=== PATIENT | female | born 1950 | race Caucasian/White ===

== ENCOUNTER → 2018-10-09 10:03 | Outpatient (CLI) | payer MEDICARE, SELFPAY ==
[2018-10-09 11:03] LABS: Hematocrit 50.1 % (36-46); Hemoglobin 16.5 g/dL (12.0-16.0); Mean Corpuscular Hemoglobin 30.3 PG (26-34); Mean Corpuscular Volume 91.8 fL (80-100); Platelet Count 247 X10^3/uL (150-400); Red Blood Cell Count 5.46 X10^6/uL (4.0-5.2); Red Cell Distribution Width 14.8 % (11.6-14.8); White Blood Cell Count 9.1 X10^3/uL (4.5-11.0)
[2018-10-09 11:47] LABS: Microalbumi Creatinin Ratio Ur 42.1 ug/mg CR (<30); Microalbumin Urine Random 4.3 mg/dL (0-1.6)
[2018-10-09 12:16] LABS: HEMOLYSIS < 15 (0-50); Iron 158 ug/dL (37-170)
[2018-10-09 12:20] LABS: Alanine Aminotransferase 53 IU/L (9-52); Albumin 5.1 g/dL (3.5-5.0); Albumin Globulin Ratio 1.8 (1.0-2.8); Alkaline Phosphatase 80 U/L (38-126); Aspartate Aminotransferase 31 IU/L (14-36); BUN Creatinine Ratio 15.8 (6-22); Bilirubin Total 0.8 mg/dL (0.2-1.3); Blood Urea Nitrogen 19 mg/dL (7-17); Calcium 10.7 mg/dL (8.4-10.2); Carbon Dioxide 23 mmol/L (22-32); Chloride 104 mmol/L (98-107); Cholesterol 310 mg/dL (140-199); Estimated Glomerular Filt Rate 45.1 mL/min (>60); Globulin 2.9 g/dL (1.7-4.1); Glucose 95 mg/dL (80-110); HDL Cholesterol 82 mg/dL (40-60); HEMOLYSIS < 15 (0-50); LDL Cholesterol Calculated 181 mg/dL (<100); Magnesium 2.3 mg/dL (1.6-2.3); Potassium 5.1 mmol/L (3.4-5.1); Sodium 140 mmol/L (137-145); Triglycerides 235 mg/dL (35-150)
[2018-10-09 12:26] LABS: Percent Iron Saturation 45 % (15-50); Total Iron Binding Capacity 355 ug/dL (265-497); Transferrin 312 mg/dL (206-381)
[2018-10-09 12:34] LABS: Vitamin D 25 Hydroxy (D3) 30.8 ng/mL (30.0-100.0)
[2018-10-09 12:51] LABS: TSH w/ Reflex to FT4 2.41 uIU/mL (0.47-4.68)
[2018-10-09 12:57] LABS: Ferritin 80.7 ng/mL (11.1-264)
[2018-10-09 13:27] LABS: Folate 6.3 ng/mL (2.76-20.0); Vitamin B12 536 pg/mL (239-931)
== END ==
PROVIDERS: Visit Provider Nurse Practitioner Family
DX: I10 Essential (primary) hypertension (principal); J44.9 Chronic obstructive pulmonary disease, unspecified; R06.2 Wheezing; G25.81 Restless legs syndrome; Z68.29 Body mass index [BMI] 29.0-29.9, adult; N18.9 Chronic kidney disease, unspecified; E83.52 Hypercalcemia
CPT/HCPCS: 36415; 80053; 80061; 82043; 82306; 82570; 82607; 82728; 82746; 83540; 83550; 83735; 84443; 85027

== ENCOUNTER → 2018-12-04 13:25 | Outpatient (CLI) | payer MEDICARE, SELFPAY ==
[2018-12-04 13:52] LABS: RBC Urine None Seen (0-5/HPF)
[2018-12-04 14:39] LABS: Hematocrit 47.7 % (36-46); Hemoglobin 15.7 g/dL (12.0-16.0); Mean Corpuscular Hemoglobin 30.8 PG (26-34); Mean Corpuscular Volume 93.5 fL (80-100); Platelet Count 247 X10^3/uL (150-400); White Blood Cell Count 7.7 X10^3/uL (4.5-11.0)
[2018-12-04 14:47] LABS: Appearance Urine UA SL CLOUDY; Bilirubin Urine UA NEGATIVE (NEGATIVE); Color Urine UA YELLOW; Glucose Urine UA NEGATIVE (Negative); Ketones Urine UA NEGATIVE (NEGATIVE); Leukocyte Esterase Urine UA NEGATIVE (NEGATIVE); Nitrite Urine UA NEGATIVE (Negative); Occult Blood Urine UA TRACE-INTACT (Negative); Protein Urine UA NEGATIVE (Negative); Urobilinogen Urine UA 0.2 E.U./dL (0.2)
[2018-12-04 15:11] LABS: Squamous Epithelial Cell Urine 5-10 /HPF (0-5/HPF); WBC Urine 0-1/HPF (0-5/HPF)
[2018-12-04 15:12] LABS: Bacteria Urine Moderate (10-30); Culture Indicated Urine Cult Not Indicated
[2018-12-04 15:13] LABS: Urine Comments NOTE
[2018-12-04 15:25] LABS: Blood Urea Nitrogen 24 mg/dL (7-17); Calcium 9.8 mg/dL (8.4-10.2); Carbon Dioxide 23 mmol/L (22-32); Chloride 103 mmol/L (98-107); Estimated Glomerular Filt Rate 44.9 mL/min (>60); Glucose 105 mg/dL (80-110); HEMOLYSIS < 15 (0-50); Potassium 4.6 mmol/L (3.4-5.1); Sodium 136 mmol/L (137-145)
[2018-12-04 15:27] LABS: Creatinine Urine Random 78.5 mg/dL; Protein (Total) Urine Random 8 mg/dL (0-12)
[2018-12-04 15:56] LABS: Hepatitis B Surface Antigen NEGATIVE s/c (NEGATIVE)
[2018-12-04 16:13] LABS: Hep C Virus Ab w/Reflex Quant NEGATIVE s/c (NEGATIVE)
[2018-12-06 11:43] LABS: DNA (DS) Antibody 1 IU/mL (< 5)
[2018-12-06 14:15] LABS: Hepatitis B Core Antibody Nonreactive (Nonreactive)
[2018-12-06 14:19] LABS: Parathyroid Hormone Int 59 pg/mL (14-64)
[2018-12-06 14:37] LABS: Complement C3 125 mg/dL (83-193)
[2018-12-06 14:44] LABS: Hepatitis B Surf AB Imm QUANT < 5 mIU/mL (> 9)
[2018-12-06 18:58] LABS: ANA Screen, IFA Negative (Negative)
[2018-12-08 15:51] LABS: Albumin 100 %; Protein/ Creatinine Ratio 97 mg/g creat (21-161); Total Urine Protein 8 mg/dL (5-24); Urine Creatinine, Random 82 mg/dL (20-275)
[2018-12-08 18:08] LABS: ANCA Screen Negative (Negative)
[2018-12-09 23:36] LABS: Albumin 4.1 g/dL (3.8-4.8); Alpha 1 Globulin 0.2 g/dL (0.2-0.3); Alpha 2 Globulin 0.6 g/dL (0.5-0.9); Beta 1 Globulin 0.4 g/dL (0.4-0.6); Gamma Globulin 0.7 g/dL (0.8-1.7); Protein, Total 6.3 g/dL (6.1-8.1)
== END ==
PROVIDERS: PCP Nurse Practitioner Family; Visit Provider Student in an Organized Health Care Education/Training Program
DX: L93.2 Other local lupus erythematosus (principal); M31.30 Wegener's granulomatosis without renal involvement; M32.10 Systemic lupus erythematosus, organ or system involvement unspecified; N00.9 Acute nephritic syndrome with unspecified morphologic changes; N05.9 Unspecified nephritic syndrome with unspecified morphologic changes; D89.89 Other specified disorders involving the immune mechanism, not elsewhere classified; D70.9 Neutropenia, unspecified; D63.1 Anemia in chronic kidney disease; B19.10 Unspecified viral hepatitis B without hepatic coma; B17.10 Acute hepatitis C without hepatic coma; N25.81 Secondary hyperparathyroidism of renal origin; B34.9 Viral infection, unspecified; D47.2 Monoclonal gammopathy; N30.00 Acute cystitis without hematuria; R80.9 Proteinuria, unspecified
CPT/HCPCS: 36415; 80048; 81001; 82570; 82784; 83520; 83970; 84155; 84156; 84165; 84166; 85027; 86021; 86038; 86160; 86225; 86317; 86334; 86335; 86704; 86803; 87340

== ENCOUNTER → 2018-12-24 15:58 | Outpatient (CLI) | payer MEDICARE, SELFPAY ==
--- NOTE | 2018-12-24 | DI.US.S_ITS ---
PROCEDURE: US RENAL COMPLETE INDICATIONS: CHRONIC KIDNEY DISEASE STAGE THREE TECHNIQUE: Real-time scanning was performed of the kidneys and bladder, with image documentation. COMPARISON: None. FINDINGS: Kidneys: Kidneys are normal in size. Right kidney measures 10.2 cm long; left kidney measures 10.3 cm long. Right renal cortical thickness is 1.7 cm; left renal cortical thickness is 1.6 cm. Renal cortical echotexture is normal. No hydronephrosis or nephrolithiasis. No suspicious solid mass lesions. A single small simple appearing renal cortical cysts present in each kidney. Bladder: Pre-void bladder volume is 55 mL. Post-void residual is 3 mL. Pre-void images demonstrate no intraluminal masses or stones. On pre-void images, bilateral ureteral jets are noted with color Doppler interrogation. (Of note, ureteral jets may not be detectable in up to 25% of cases due to insufficient differences in specific gravity between ureteral and bladder urine). Miscellaneous: No free pelvic fluid. IMPRESSION: Source renal insufficiency is not identified. No hydronephrosis or nephrolithiasis is found and there is normal [place] Dictated by: Franco Foster M.D. on 12/24/2018 at 16:51 Approved by: Franco Foster M.D. on 12/24/2018 at 16:53
== END ==
PROVIDERS: Family Provider Nurse Practitioner Family; PCP Nurse Practitioner Family; Visit Provider Student in an Organized Health Care Education/Training Program
DX: N18.3 Chronic kidney disease, stage 3 (moderate) (principal)
CPT/HCPCS: 76770

== ENCOUNTER → 2019-01-06 11:12 | Outpatient (CLI) | payer MEDICARE, SELFPAY ==
--- NOTE | 2019-01-06 11:14 | DI.MG.S_ITS ---
BILATERAL DIGITAL SCREENING MAMMOGRAM 3D/2D WITH CAD: 01/06/2019 CLINICAL: Routine screening. Baseline exam. No prior exams were available for comparison. The tissue of both breasts is heterogeneously dense. This may lower the sensitivity of mammography. Current study was also evaluated with a Computer Aided Detection (CAD) system. No significant masses, calcifications, or other findings are seen in either breast. IMPRESSION: NEGATIVE There is no mammographic evidence of malignancy. A 1 year screening mammogram is recommended. This exam was interpreted at Station ID: [id number]. NOTE: For mammograms, a report in lay terms will be sent to the patient. Approximately 15% of breast malignancies will not be visualized mammographically. In the management of a palpable breast mass, a negative mammogram must not discourage biopsy of a clinically suspicious lesion. Electronically Signed By: Allen pink/[email or web address]:01/06/2019 13:14:57 letter sent: Normal Exam ACR BI-RADS Category 1: Negative [id number]
== END ==
PROVIDERS: PCP Nurse Practitioner Family; Visit Provider Nurse Practitioner Family
DX: Z12.31 Encounter for screening mammogram for malignant neoplasm of breast (principal)
CPT/HCPCS: 77063; 77067

== ENCOUNTER → 2019-01-07 14:14 | Outpatient (CLI) | payer MEDICARE, SELFPAY ==
[2019-01-07 15:25] LABS: Calcium 9.9 mg/dL (8.4-10.2)
[2019-01-07 15:26] LABS: BUN Creatinine Ratio 17.3 (6-22); Blood Urea Nitrogen 19 mg/dL (7-17); Calcium 9.7 mg/dL (8.4-10.2); Carbon Dioxide 25 mmol/L (22-32); Chloride 100 mmol/L (98-107); Estimated Glomerular Filt Rate 49.7 mL/min (>60); Glucose 99 mg/dL (80-110); HEMOLYSIS 25 (0-50); Potassium 4.5 mmol/L (3.4-5.1); Sodium 136 mmol/L (137-145)
[2019-01-07 17:08] LABS: Creatinine Urine Random 48.5 mg/dL; Protein (Total) Urine Random 11 mg/dL (0-12); Protein Creatinine Ratio Urine 0.22 GRAM/24H
== END ==
PROVIDERS: PCP Nurse Practitioner Family; Visit Provider Student in an Organized Health Care Education/Training Program
DX: N05.9 Unspecified nephritic syndrome with unspecified morphologic changes (principal)
CPT/HCPCS: 36415; 80048; 82310; 82570; 83970; 84156

== ENCOUNTER → 2019-05-18 12:32 | Outpatient (CLI) | payer MEDICARE, SELFPAY ==
[2019-05-18 13:39] LABS: Hemoglobin 15.6 g/dL (12.0-16.0)
[2019-05-18 14:10] LABS: BUN Creatinine Ratio 15.8 (6-22); Blood Urea Nitrogen 19 mg/dL (7-17); Calcium 9.5 mg/dL (8.4-10.2); Carbon Dioxide 25 mmol/L (22-32); Chloride 107 mmol/L (98-107); Estimated Glomerular Filt Rate 44.9 mL/min (>60); Glucose 104 mg/dL (80-110); HEMOLYSIS < 15 (0-50); Potassium 4.3 mmol/L (3.4-5.1); Sodium 141 mmol/L (137-145)
[2019-05-18 15:07] LABS: Creatinine Urine Random 252.5 mg/dL; Protein (Total) Urine Random 7 mg/dL (0-12); Protein Creatinine Ratio Urine 0.02 GRAM/24H
[2019-05-21 16:22] LABS: Parathyroid Hormone Int 113 pg/mL (14-64)
== END ==
PROVIDERS: PCP Nurse Practitioner Family; Visit Provider Student in an Organized Health Care Education/Training Program
DX: N05.9 Unspecified nephritic syndrome with unspecified morphologic changes (principal); D64.9 Anemia, unspecified; N25.81 Secondary hyperparathyroidism of renal origin; R80.9 Proteinuria, unspecified
CPT/HCPCS: 36415; 80048; 82570; 83970; 84156; 85014; 85018